=== PATIENT | male | born 1975 | race Caucasian/White ===

== ENCOUNTER 2020-11-19 04:35 | Observation (INO) | payer OTHER ==
[~2020-11-19] VITALS: Ht 165.1 cm; Wt 101.8 kg
[~2020-11-19 04:35] MED LIST: NO HOME MEDICATIONS; NORCO 325 MG-51 TAB PO; PROTONIX 40MG T40 MG PO; ZOFRAN 4MG T4 MG/TAB PO
[2020-11-19 04:57] LABS: BASO # 0.1 (0.0-0.2); BASO % 0.7 % (0.0-2.0); EOS # 0.2 (0.0-0.7); EOS % 1.9 % (0-4.0); GRAN # 6.5 (1.4-6.5); GRAN % 59.9 % (42.2-75.2); HEMATOCRIT 48.8 % (42.0-52.0); HEMOGLOBIN 17.1 g/dl (13.5-18.0); LYMPH # 3.1 (1.2-3.4); LYMPH % 28.8 % (20.0-51.0); MEAN CELL VOLUME 96 fl (80.0-100.0); MEAN CORPUSCULAR HEMOGLOBIN 34 pg (27.0-31.0); MEAN CORPUSCULAR HGB CONC 35 g/dl (33.0-37.0); MEAN PLATELET VOLUME 8.4 fl (7.4-10.4); MONO # 0.9 (0.1-0.6); MONO % 8.2 % (1.7-9.3); PLATELET COUNT 310 K/mm3 (130-400); RED BLOOD COUNT 5.09 M/mm3 (4.20-5.60); REDCELL DISTRIBUTION WIDTH-CV 12.3 % (11.5-14.5)
[2020-11-19 05:10] LABS: ALBUMIN 4.2 gm/dL (3.5-5.0); BILIRUBIN,TOTAL 0.1 mg/dL (0.0-1.0); C-REACTIVE PROTEIN 0.8 mg/dL (0.0-0.9); CALCIUM 9.3 mg/dL (8.4-10.2); CREATININE, serum 0.79 (0.66-1.25); POTASSIUM 3.7 mmol/L (3.4-5.0); TOTAL PROTEIN 7.8 gm/dL (6.4-8.2)
[2020-11-19 05:59] LABS: COLLECTION METHOD CLEAN CATCH
[2020-11-19 06:05] LABS: MUCOUS Present /lpf; PH 6 (5-8); SQUAMOUS EPITHELIAL None Seen /hpf; URINE APPEARANCE Clear; URINE BACTERIA None Seen /hpf; URINE BILIRUBIN Negative (NEGATIVE); URINE BLOOD Negative (NEGATIVE); URINE COLOR Yellow; URINE GLUCOSE 1+ (NEGATIVE); URINE KETONE Negative (NEGATIVE); URINE LEUKOCYTE ESTERASE Negative (NEGATIVE); URINE NITRATE Negative (NEGATIVE); URINE PROTEIN(semi-quant) Negative (NEGATIVE); URINE RBC None Seen /hpf; URINE UROBILINOGEN Negative (NEGATIVE)
[2020-11-19] MEDS ORDERED: OMEGA-3 FISH1000 MG PO (06:22)
[2020-11-19] MEDS ORDERED: JANUVIA 100MG100 MG PO (06:23)
[2020-11-19] MEDS ORDERED: GLUCOPHAGE850 MG/TAB PO (06:23)
[2020-11-19] MEDS ORDERED: ZESTRIL 10MG10 MG PO (06:24)
[2020-11-19] MEDS ORDERED: MEVACOR40 MG PO (06:24)
[2020-11-19] MEDS ORDERED: HCTZ 25MG TAB25 MG PO (06:25)
[2020-11-19] MEDS ORDERED: NORVASC 10MG10 MG PO (06:25)
[2020-11-19 08:00] VITALS: BP 150/78; PULSE 72; TEMP 97.5
--- NOTE | 2020-11-19 10:30 | NUR ---
Patient alert and oriented, answers questions appropriately. See assessment. Abdomen soft, non tender, non distended. Bowel sounds active x4 quads. Dr Yi notified of arrival on unit and has seen patient. No c/o at this time.
--- NOTE | 2020-11-19 10:34 | NUR ---
SW met with the patient to discuss discharge plan. The patient lives in [place] with his three children: Khushbu (ph#[phone], 20 years-old), Heilo (17), and Alpa (14). He states that Khushbu and his oldest daughter, Herman, are taking care of his younger children while he is here. He reports independence with ADLs and does not have any DME. He works for a [employer]. The patient receives primary care and his medications from [facility] in [place]. The patient does not have a DPOA-HC and he was not interested in completing one while here. The patient plans to return home with his family upon discharge. No additional needs at this time.
--- NOTE | 2020-11-19 11:56 | NUR ---
First visit from the hand packager. No needs right now.
[2020-11-19 11:58] VITALS: BP 132/71; PULSE 73; TEMP 97.6
--- NOTE | 2020-11-19 14:36 | NUR ---
Discharge instructions reviewed with patient and daughter, verbalized understanding. Discharged ambulatory to auto/home with daughter at 1435.
[2020-11-20] MEDS ORDERED: MOTRIN 800800 MG/TAB PO (06:48)
[2020-11-20] MEDS ORDERED: NORCO 325 MG-7.1 TAB PO (08:38)
== END 2020-11-19 14:35 | disposition home or self-care (01) ==
LOC: COL.ER 04:35 → JCC 06:11
PROVIDERS: Emergency Medicine; ADMIT Surgery
DX: K80.12 Calculus of gallbladder with acute and chronic cholecystitis without obstruction (principal); I10 Essential (primary) hypertension; E11.9 Type 2 diabetes mellitus without complications; E78.00 Pure hypercholesterolemia, unspecified; F17.200 Nicotine dependence, unspecified, uncomplicated; Z79.899 Other long term (current) drug therapy; Z79.84 Long term (current) use of oral hypoglycemic drugs; Z79.891 Long term (current) use of opiate analgesic
CPT/HCPCS: G0378; J0696; J1885; J2270; J2405; J3010; J7030; Q9967

== ENCOUNTER 2020-11-20 05:47 | Day surgery (SDC) | payer OTHER ==
[~2020-11-20] VITALS: Ht 165.1 cm; Wt 104.9 kg
[~2020-11-20 05:47] MED LIST changes: +GLUCOPHAGE850 MG/TAB PO; +HCTZ 25MG TAB25 MG PO; +JANUVIA 100MG100 MG PO; +MEVACOR40 MG PO; +NORVASC 10MG10 MG PO; +OMEGA-3 FISH1000 MG PO; +ZESTRIL 10MG10 MG PO
[2020-11-20 06:32] VITALS: BP 126/79; PULSE 73; TEMP 97.6
[2020-11-20] MEDS ORDERED: MOTRIN 800800 MG/TAB PO (06:48)
--- NOTE | 2020-11-20 06:53 | NUR ---
TO LEONILA AT 0556- CALL LIGHT IN REACH FRIEND SUZANNE AT BEDSIDE
[2020-11-20] MEDS ORDERED: NORCO 325 MG-7.1 TAB PO (08:38)
[2020-11-20 09:10] VITALS: BP 120/68; PULSE 80
--- NOTE | 2020-11-20 09:10 | NUR ---
TO RM 8 PER OWN WILL STEADY GAIT. ALERT ORIENTED X3, TALKING TO STAFF AND FRIEND SUZANNE. 02 SAT 99% ON 4L LITERS. DRESSING CLEAN DRY INTACT RECEIVED SPRITE AND APPLE SAUCE.
[2020-11-20 09:17] VITALS: TEMP 98.2
[2020-11-20 09:20] VITALS: BP 131/78; PULSE 82
--- NOTE | 2020-11-20 09:20 | NUR ---
C/O INCREASED PAIN 7/10 AND RECEIVED NORCO 5MG 1 TAB ATE 100% AND TOLERATED WELL.
[2020-11-20 09:30] VITALS: BP 130/76; PULSE 79
--- NOTE | 2020-11-20 09:30 | NUR ---
02 SAT 89% OFF O2, ENCOURAGED TO TAKE DEEP BREATHS
--- NOTE | 2020-11-20 09:45 | NUR ---
AMBULATED TO BATHROOM. VOIDED AND AMBULATED BACK TO . NO GRIMACING OR GAURDING. PATIENT STATED HE WAS READY TO GO HOME
--- NOTE | 2020-11-20 10:05 | NUR ---
DISCHARGED PER BY NURSING STAFF TO PRIVATE CAR IN CARE OF FRIEND SUZANNE.
--- NOTE | 2020-11-20 10:05 | NUR ---
RECEIVED DISCHARGE INSTRUCTIONS AND VERBALIZED UNDERSTANDING. O2 SAT 96% ON ROOM AIR. DISCONTINUED IV AND INT- CATHETER INTACT. PATIENT GETTING DRESSED
--- NOTE | 2020-11-20 10:20 | NUR ---
DISCHARGED PER BY NURSING STAFF TO PRIVATE CAR IN CARE IN CARE OF FRIEND SUZANNE.
== END 2020-11-20 10:36 | disposition home or self-care (01) ==
LOC: SDCO 05:47
DX: K80.10 Calculus of gallbladder with chronic cholecystitis without obstruction (principal); K82.1 Hydrops of gallbladder; E11.9 Type 2 diabetes mellitus without complications; I10 Essential (primary) hypertension; F17.200 Nicotine dependence, unspecified, uncomplicated; Z79.891 Long term (current) use of opiate analgesic; Z20.822 Contact with and (suspected) exposure to COVID-19; Z79.899 Other long term (current) drug therapy; Z79.84 Long term (current) use of oral hypoglycemic drugs
CPT/HCPCS: J2405; J2704; J3010; J7120

== ENCOUNTER → 2021-01-19 | Outpatient (CLI) | payer OTHER ==
[~2021-01-19] MED LIST changes: +MOTRIN 800800 MG/TAB PO; +NORCO 325 MG-7.1 TAB PO
== END ==
LOC: COL.RAD 18:42
DX: S93.402A Sprain of unspecified ligament of left ankle, initial encounter (principal)

== ENCOUNTER → 2021-04-01 | Outpatient (CLI) | payer OTHER | LOC: COL.RAD 10:58 | DX: M51.16 Intervertebral disc disorders with radiculopathy, lumbar region (principal); M43.17 Spondylolisthesis, lumbosacral region ==

== ENCOUNTER 2022-01-04 08:39 | Observation (INO) | payer SELFPAY ==
[~2022-01-04] VITALS: Ht 165.1 cm; Wt 100.0 kg
[2022-01-04 09:14] LABS: BASO # 0.1 K/mm3 (0.0-0.2); BASO % 0.9 % (0.0-2.0); EOS # 0.1 K/mm3 (0.0-0.7); EOS % 0.8 % (0.0-4.0); GRAN # 7.4 K/mm3 (1.4-6.5); HEMATOCRIT 45.2 % (42.0-52.0); HEMOGLOBIN 16.2 g/dl (13.5-18.0); LYMPH # 3.2 K/mm3 (1.2-3.4); MEAN CELL VOLUME 93 fl (80.0-100.0); MEAN CORPUSCULAR HEMOGLOBIN 33 pg (27-31); MEAN CORPUSCULAR HGB CONC 36 g/dl (33.0-37.0); MEAN PLATELET VOLUME 8.7 fl (7.4-10.4); MONO # 0.9 K/mm3 (0.1-0.6); MONO % 7.5 % (1.7-9.3); PLATELET COUNT 368 K/mm3 (130-400); RED BLOOD COUNT 4.86 M/mm3 (4.20-5.60); REDCELL DISTRIBUTION WIDTH-CV 12.9 % (11.5-14.5)
[2022-01-04 09:34] LABS: ALANINE AMINOTRANSFERASE 74 U/L (0-55); ALBUMIN 3.7 gm/dL (3.5-5.0); ALKALINE PHOSPHATASE 140 U/L (40-150); ANION GAP 13 mmol/L (7-16); AST,SGOT 33 U/L (5-34); BILIRUBIN,TOTAL 0.2 mg/dL (0.2-1.2); BLOOD UREA NITROGEN 8 mg/dL (9-21); CARBON DIOXIDE 22 mmol/L (22-29); CHLORIDE 95 mmol/L (98-107); CREATININE, serum 0.88 mg/dL (0.72-1.25); GLUCOSE 212 mg/dL (70-99); LIPASE 88 U/L (8-78); POTASSIUM 3.6 mmol/L (3.5-4.5); SODIUM 130 mmol/L (136-145); TOTAL PROTEIN 6.8 gm/dL (6.2-8.1)
[2022-01-04 09:43] LABS: TROPONIN-I < 0.010 ng/mL (0.00-0.033)
[2022-01-04 10:20] LABS: COLLECTION METHOD CLEAN CATCH
[2022-01-04 10:28] LABS: PH 6 (5-8); SQUAMOUS EPITHELIAL None Seen /hpf (0-10); URINE APPEARANCE Clear (CLEAR/HAZY); URINE BACTERIA None Seen /hpf (NONE SEEN); URINE BILIRUBIN Negative (NEGATIVE); URINE BLOOD Negative (NEGATIVE); URINE COLOR Yellow (YELLOW); URINE GLUCOSE 3+ (NEGATIVE); URINE KETONE Negative (NEGATIVE); URINE LEUKOCYTE ESTERASE Negative (NEGATIVE); URINE NITRATE Negative (NEGATIVE); URINE PROTEIN(semi-quant) Negative (NEGATIVE); URINE RBC 0-2 /hpf (0-2); URINE UROBILINOGEN Negative (NEGATIVE); URINE WBC 0-2 /hpf (0-2)
[2022-01-04 15:42] VITALS: BP 120/72; PULSE 74; TEMP 97.7
[2022-01-04] MEDS ORDERED: GLUCOPHAGE1000 MG PO (15:42)
[2022-01-04] MEDS ORDERED: TYLENOL 500MG500 MG PO (15:46)
--- NOTE | 2022-01-04 18:43 | NUR ---
PATIENT RESTING IN BED, COMPLAINTS OF 6 OUT OF 10 PAIN. MORPHINE IV GIVEN PER EMR. PATIENT TOLERATING DIET. DAUGHTER AND SON AT BEDSIDE. PER SCENE AND LIGHTING DESIGN LECTURER, ONE MAY STAY OVER NIGHT FOR INTERPRETATION PURPORSES. PATIENT ALERT AND ORIENTED. PAIN LOCATED BILATERAL EPIGASTRIC. C/O FREQUENT LOOSE BOWELS. PATIENT INSTRUCTED TO INFORM STAFF WHEN HE HAS BM FOR ASSESSMENT.
[2022-01-04 19:32] VITALS: BP 114/62; PULSE 70; TEMP 98.1
--- NOTE | 2022-01-04 20:10 | NUR ---
Initial shift assessment done- states upper abd pain/epigastric pain 12/06, will give Morphine IV at this time, Tele on, States no stools/diarrhea in hospital, Understands NPO after MN for lexiscan in AM
[2022-01-04 22:59] VITALS: BP 102/55; PULSE 71; TEMP 98.7
[2022-01-05] VITALS (22 sets, daily range): BP systolic 102–156; BP diastolic 57–83; PULSE 65–90; TEMP 97.5–98.7
--- NOTE | 2022-01-05 05:27 | NUR ---
Npo for Lexiscan today, Sletp fair tonight- medicated for upper abd pain x2 this shift. No stools this shift.
[2022-01-05 07:01] LABS: BASO # 0.1 K/mm3 (0.0-0.2); BASO % 0.7 % (0.0-2.0); EOS # 0.1 K/mm3 (0.0-0.7); GRAN # 6.2 K/mm3 (1.4-6.5); GRAN % 60.4 % (42.2-75.2); HEMATOCRIT 43.5 % (42.0-52.0); HEMOGLOBIN 15.5 g/dl (13.5-18.0); LYMPH # 3.1 K/mm3 (1.2-3.4); MEAN CELL VOLUME 94 fl (80.0-100.0); MEAN CORPUSCULAR HEMOGLOBIN 34 pg (27-31); MEAN CORPUSCULAR HGB CONC 36 g/dl (33.0-37.0); MEAN PLATELET VOLUME 8.9 fl (7.4-10.4); MONO # 0.7 K/mm3 (0.1-0.6); MONO % 7.2 % (1.7-9.3); PLATELET COUNT 330 K/mm3 (130-400); RED BLOOD COUNT 4.61 M/mm3 (4.20-5.60)
[2022-01-05 07:19] LABS: CALCIUM 8.8 mg/dL (8.4-10.2); CREATININE, serum 0.72 mg/dL (0.72-1.25); POTASSIUM 4.3 mmol/L (3.5-4.5)
[2022-01-05 07:27] LABS: TROPONIN-I 0.01 ng/mL (0.00-0.033)
--- NOTE | 2022-01-05 09:11 | NUR ---
SHEFALI met with the patient's daughter, Sarah (ph#[phone]), to discuss discharge plan. The patient was down in a procedure. The patient lives in [place] with his son, Brent. Brent is [id number]. Sarah states that the patient is independent with ADLs and does not have any DME. The patient receives primary care and his medications at [facility] in . She confirms that the patient is self pay. SHEFALI consulted financial counseling. Sarah states that the patient does not have a DPOA-HC. She states that the patient is not and that he has three children 18-years or older: Sarah, Khushbu (ph#[phone]), and Brent. Sarah states that the plan is for the patient to return home upon discharge. *Discharge plan: home with son*
--- NOTE | 2022-01-05 10:11 | NUR ---
Initial visit attempt; Polishing Pad Mounter spoke with patient's daughter Patti and left Polishing Pad Mounter's card with her for Brent. Polishing Pad Mounter offered God's blessings to their family and asked that she or her Dad let Polishing Pad Mounter know if he has any Spiritual requests while he is here with us.
--- NOTE | 2022-01-05 12:05 | NUR ---
NO COMPLINTS OF PAIN. LEXISCAN FIRST THING THIS MORNING. PATIENT HUNGRY AND READY TO GO HOME. AWAITING RESULTS TO DETERMINE INTERVENTIONS VS OUTPATIENT GI FOLLOWUP.
--- NOTE | 2022-01-05 13:58 | NUR ---
EDUCATION AND PREP DONE WITH DHEERAJ LIM FROM CLOTH DOFFER. PATIENT CONSENTED. IV FLUIDS STARTED. DAUGHTER AT BEDSIDE FOR INTERPRETATION. NO QUESTIONS, NO COMPLAINTS OF PAIN.
--- NOTE | 2022-01-05 15:23 | NUR ---
PATIENT TRANSPORTED TO [facility] VIA BED.
[2022-01-05 15:57] LABS: INR 0.9 (0.8-3.0); PROTHROMBIN TIME 10.8 SECONDS (9.7-12.8)
--- NOTE | 2022-01-05 18:12 | NUR ---
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 NO COMPLAINTS OF PAIN. RADIAL BAND PLACED AT 1715 WITH 13MLS OF AIR. CHECKED WITH [facility] RN AT BEDSIDE. NO S/S OF HEMATOMA, PULSES PRESENT. PER [facility] RN ANGIOMAX STOPPED AT 1745. POST PRECEDURE VITALS INITIATED AT 1755. PATIENT GIVEN, 240 OF ICE WATER, 220 OF SUGAR FREE SPRITE AND A ORANGE JELLO. PATIENT FAMILY ASSISTING IN ORDERING DINNER. PATIENT DAUGHTER SPENDING THE NIGHT TO ASSIST IN INTERPRETATION. WILL CONTINUE TO MONITOR POST CATH STATUS.
--- NOTE | 2022-01-05 20:00 | NUR ---
Initial shift assessment done- right radial site with compression band on- no bleeding noted- did release 3cc of air at this time- no bleeding, VSS, pleasant, alert/oriented.
--- NOTE | 2022-01-05 22:30 | NUR ---
All air is out of radial band-- removed fromn right wrist- no bleeding, baindaid applied
[2022-01-06 04:43] VITALS: BP 124/62; PULSE 71; TEMP 98.2
[2022-01-06 05:54] LABS: BASO # 0.1 K/mm3 (0.0-0.2); BASO % 0.5 % (0.0-2.0); EOS # 0.1 K/mm3 (0.0-0.7); GRAN # 6.3 K/mm3 (1.4-6.5); GRAN % 65.4 % (42.2-75.2); HEMATOCRIT 41.7 % (42.0-52.0); HEMOGLOBIN 14.9 g/dl (13.5-18.0); LYMPH # 2.3 K/mm3 (1.2-3.4); LYMPH % 23.9 % (20.0-51.0); MEAN CELL VOLUME 95 fl (80.0-100.0); MEAN CORPUSCULAR HEMOGLOBIN 34 pg (27-31); MEAN CORPUSCULAR HGB CONC 36 g/dl (33.0-37.0); MEAN PLATELET VOLUME 8.5 fl (7.4-10.4); MONO # 0.8 K/mm3 (0.1-0.6); MONO % 8.7 % (1.7-9.3); PLATELET COUNT 320 K/mm3 (130-400); RED BLOOD COUNT 4.37 M/mm3 (4.20-5.60); REDCELL DISTRIBUTION WIDTH-CV 12.7 % (11.5-14.5)
[2022-01-06 06:08] LABS: CALCIUM 8.6 mg/dL (8.4-10.2); CREATININE, serum 0.72 mg/dL (0.72-1.25); POTASSIUM 4.2 mmol/L (3.5-4.5)
--- NOTE | 2022-01-06 06:37 | NUR ---
Quiet night-- bandaid to right wrist intact- no drainage- good radial pulse, patient did not sleep much last night-- pt states right AC IV is pain ful and wants it out-- IV fluids are done, will DC IV site and informed will need to start another IV site- pt aware.
[2022-01-06 07:29] VITALS: BP 141/87; PULSE 73; TEMP 97.8
[2022-01-06] MEDS ORDERED: PLAVIX 75MG TAB75 MG PO (09:37)
[2022-01-06] MEDS ORDERED: IMDUR 60MG60 MG/TAB PO (09:37)
[2022-01-06] MEDS ORDERED: PROTONIX 40MG T40 MG PO (09:38)
[2022-01-06] MEDS ORDERED: TOPROL XL 25MG25 MG PO (09:39)
[2022-01-06] MEDS ORDERED: LIPITOR 80MG80 MG PO (09:39)
[2022-01-06] MEDS ORDERED: ASPIRIN E.C. 8181 MG PO (09:39)
[2022-01-06] MEDS ORDERED: NICODERM C21 MG/PATC TD (09:40)
--- NOTE | 2022-01-06 10:29 | NUR ---
The clinical team is ready to discharge the patient today. He is being prescibed five new medications. The patient is self pay. SHEFALI met with the patient and his daughter to follow up about affording his medications. The patient states that he fills his prescriptions at the [facility] pharmacy in . He states that he can afford the medications, if he gets the scripts through them. SHEFALI contacted the pharmacy at [facility]. The pharmacist states that they have to receive a referral from their provider first, before they can fill the presciption. She is not sure if the provider would approve the scripts by today or not. SHEFALI provided the patient with a medication voucher to [facility]. Total $73.62. SHEFALI updated the patient and his daughter. SHEFALI faxed the medication voucher to [facility] and updated the patient's RN. No additional needs at this time.
--- NOTE | 2022-01-06 10:41 | NUR ---
Pt alert and oriented this morning, ambulating the hallways. Denies chest pain/SOB. NSR, HR in 70's. VS stable. Remains on room air. Shift assessment completed. Medications administered and education provided. No skin issues noted. Abdomen rounded and soft. Lung sounds are clear and diminished. Pt appears to breathe harder when up and walking, but does not appear SOB. Pt independent in room. Family at bedside. Pt will be discharging this afternoon. Will continue to monitor VS and will provide discharge education and instructions. Pt reports no questions at this time, will continue to monitor.
--- NOTE | 2022-01-06 10:42 | NUR ---
[facility]. WILL FOLLOW UP WITH PATIENT.
--- NOTE | 2022-01-06 11:23 | NUR ---
Pt discharged from unit. Discharge information and education provided to pt. VS stable before discharge. Pt questions answered. IV site removed and dressing applied. Walked pt and family member out. No concerns at this time.
== END 2022-01-06 11:23 | disposition home or self-care (01) ==
LOC: COL.ER 08:39 → MEDICAL 14:28
PROVIDERS: Emergency Medicine; Physician Assistant; ADMIT Family Medicine
DX: I25.10 Atherosclerotic heart disease of native coronary artery without angina pectoris (principal); I70.0 Atherosclerosis of aorta; I77.89 Other specified disorders of arteries and arterioles; I11.0 Hypertensive heart disease with heart failure; I50.30 Unspecified diastolic (congestive) heart failure; R10.13 Epigastric pain; K76.0 Fatty (change of) liver, not elsewhere classified; D72.829 Elevated white blood cell count, unspecified; E87.1 Hypo-osmolality and hyponatremia; E87.6 Hypokalemia; E11.9 Type 2 diabetes mellitus without complications; E78.5 Hyperlipidemia, unspecified; F17.210 Nicotine dependence, cigarettes, uncomplicated; Z79.899 Other long term (current) drug therapy; Z95.5 Presence of coronary angioplasty implant and graft; Z20.822 Contact with and (suspected) exposure to COVID-19; Z79.01 Long term (current) use of anticoagulants; Z79.82 Long term (current) use of aspirin; Z79.84 Long term (current) use of oral hypoglycemic drugs
CPT/HCPCS: 99222-AI; 99232-AI; 99239; A9500; C1725; C1769; C1874; C1887; C9113; C9600; G0378; J0583; J1644; J1815; J2250; J2270; J2405; J2785; J3010; J7030; Q9967

== ENCOUNTER → 2022-01-15 | Outpatient (CLI) | payer OTHER ==
[~2022-01-15] MED LIST changes: +ASPIRIN E.C. 8181 MG PO; +GLUCOPHAGE1000 MG PO; +IMDUR 60MG60 MG/TAB PO; +LIPITOR 80MG80 MG PO; +NICODERM C21 MG/PATC TD; +PLAVIX 75MG TAB75 MG PO; +TOPROL XL 25MG25 MG PO; +TYLENOL 500MG500 MG PO
== END ==
LOC: COL.PUL 07:34
DX: I66.3 Occlusion and stenosis of cerebellar arteries (principal)

== ENCOUNTER 2023-06-08 08:52 | Day surgery (SDC) | payer OTHER ==
[~2023-06-08] VITALS: Ht 165.1 cm; Wt 102.7 kg
[2023-06-08] VITALS (10 sets, daily range): BP systolic 113–135; BP diastolic 67–87; PULSE 68–78; TEMP 97.7
[2023-06-08 08:20] LABS: HEMOGLOBIN 15.7 g/dl (13.5-18.0); MEAN CELL VOLUME 106 fl (80.0-100.0); MEAN CORPUSCULAR HEMOGLOBIN 38 pg (27-31); MEAN CORPUSCULAR HGB CONC 36 g/dl (33.0-37.0); MEAN PLATELET VOLUME 8.4 fl (7.4-10.4); PLATELET COUNT 318 K/mm3 (130-400); RED BLOOD COUNT 4.17 M/mm3 (4.20-5.60)
[2023-06-08 08:36] LABS: PROTHROMBIN TIME 10.7 SECONDS (9.7-12.8)
[2023-06-08 08:37] LABS: CALCIUM 9.2 mg/dL (8.4-10.2); CREATININE, serum 0.64 mg/dL (0.72-1.25); POTASSIUM 3.2 mmol/L (3.5-4.5)
[2023-06-08 08:38] LABS: PARTIAL THROMBOPLASTIN TIME 30.7 SECONDS (26.0-37.0)
[~2023-06-08 08:52] MED LIST changes: +NITROSTAT0.4 MG/TAB SL
--- NOTE | 2023-06-08 09:35 | NUR ---
Refer to [facility] report for procedural sedation and notes
--- NOTE | 2023-06-08 13:22 | NUR ---
pt discharged at approx 1300. pt was assisted to main lobby via wheelchair and was accompanied by son. pt's vs remained within normal limits throughout recovery period and right radial TR band was deflated by 2ml q15 minutes. Pt remained free from signs of bleeding and hematoma throughout recovery. Oxygen was lowered incrementally and pt was discharged on room air with o2 saturations in low 90s. IV was discontinued upon discharge. Discharge instructions were given to both pt and son and both verbalized understanding. pt remained free from acute concerns and complaints upon discharge.
== END 2023-06-08 13:05 | disposition home or self-care (01) ==
LOC: COL.CAR 08:52
PROVIDERS: Internal Medicine Cardiovascular Disease
DX: I25.10 Atherosclerotic heart disease of native coronary artery without angina pectoris (principal); R06.00 Dyspnea, unspecified; R09.02 Hypoxemia
CPT/HCPCS: J1644; J2250; J3010; Q9967

== ENCOUNTER 2023-09-28 11:15 | Emergency (ER) | payer OTHER ==
[~2023-09-28] VITALS: Ht 165.1 cm; Wt 104.1 kg
[2023-09-28 11:25] VITALS: BP 153/86; PULSE 87; TEMP 97.6
[2023-09-28] MEDS ORDERED: PREDNISONE50 MG PO (12:15)
[2023-09-28] MEDS ORDERED: NORCO 325 MG-51 TAB PO (12:15)
== END 2023-09-28 13:05 | disposition home or self-care (01) ==
LOC: COL.ER 11:15
DX: M54.31 Sciatica, right side (principal); Z95.9 Presence of cardiac and vascular implant and graft, unspecified